=== PATIENT | male | born 1985 | race Caucasian/White ===

== ENCOUNTER 2018-09-02 03:15 | Emergency (ER) | payer BC ==
[~2018-09-02] VITALS: Ht 170.2 cm; Wt 88.5 kg
[~2018-09-02 03:15] MED LIST: ACETAMINOPHEN-1 EAC1 PO; ANALGESI TOP; BACTRIM DS TAB1 EACH PO; CARAFATE 11 GM/10 M1 PO; CENTANY30 GM TP; CIPROFLOXACIN500 M1 PO; CLEOCIN HCL300 MG PO; DARVOCET-N 1001 EACH PO; DEXEDRINE10 MG PO; FLEXERIL PO; HYDROCODON-ACE1 EAC7 PO; IBUPROFEN 800800 M1 PO; MEDROL DOSPAK21 TA1; NOHOMEMEDICATIONS; NORCO 5-325 TA1 EACH PO; ONDANSETRON ODT4 MG PO; PERCOCET 5-3251 EACH PO; PROTONIX40 MG PO; VENTOLIN17 GM INH; ZOFRAN ODT4 MG PO; ZPAK PO
[2018-09-02] MEDS ORDERED: CLEOCIN HCL150 MG PO (03:40)
[2018-09-02] MEDS ORDERED: NORCO 7.5-3251 EACH PO (03:40)
[2018-09-02] MEDS ORDERED: ZOFRAN ODT4 MG PO (03:40)
[2018-09-02 04:41] VITALS: BP 130/72
== END 2018-09-02 04:42 | disposition home or self-care (01) ==
LOC: M.ERS 03:15
DX: L03.116 Cellulitis of left lower limb (principal); F17.210 Nicotine dependence, cigarettes, uncomplicated; Z88.0 Allergy status to penicillin; Z88.1 Allergy status to other antibiotic agents; Z88.7 Allergy status to serum and vaccine

== ENCOUNTER 2019-01-26 23:42 | Emergency (ER) | payer BC ==
[~2019-01-26] VITALS: Ht 170.2 cm; Wt 93.9 kg
[~2019-01-26 23:42] MED LIST changes: +CLEOCIN HCL150 MG PO; +NORCO 7.5-3251 EACH PO
[2019-01-26] MEDS ORDERED: CHANTIX1 EACH PO (23:52)
[2019-01-27 00:02] LABS: ABSOLUTE BASOPHILS 0.1 thou/uL (0.0-0.2); ABSOLUTE EOSINOPHILS 0.4 thou/uL (0.0-0.7); ABSOLUTE LYMPHOCYTES 2.9 thou/uL (0.8-5.3); ABSOLUTE MONOCYTES 1.1 thou/uL (0.0-1.2); ABSOLUTE NEUTROPHILS 4.9 thou/uL (1.6-8.1); BASOPHILS 0.7 %; EOSINOPHILS 4.3 %; HEMATOCRIT 44.1 % (42.0-52.0); HEMOGLOBIN 15.2 gm/dL (14.0-18.0); MCH 31.7 pg (26.0-34.0); MCHC 34.4 g/dL (28.0-37.0); MCV 92.1 fL (80.0-100.0); MONOCYTES 11.4 %; MPV 9.4 fl. (7.2-11.1); NUCLEATED RBCS 0 /100WBC; PLATELET COUNT* 259 thou/uL (150-400); POLYS 52.6 %; RBC 4.79 mil/uL (4.50-6.00); RDW-CV 13.3 % (10.5-14.5); WBC 9.3 thou/uL (4.0-11.0)
[2019-01-27 00:19] LABS: ANION GAP 12 mmol/L (7-16); APTT 26.6 Seconds (25.0-31.3); BUN 16 mg/dL (7-18); CALCIUM 8.8 mg/dL (8.5-10.1); CHLORIDE 107 mmol/L (98-107); CO2 25 mmol/L (21-32); CREATININE 0.9 mg/dL (0.6-1.3); GLUCOSE 104 mg/dL (70-99); POTASSIUM 4.1 mmol/L (3.5-5.1); PROTIME 9.8 Seconds (9.20-11.50); SODIUM 144 mmol/L (136-145); TROPONIN-I LEVEL <0.06 ng/mL (<0.06)
[2019-01-27 00:24] LABS: ALBUMIN 3.6 g/dL (3.4-5.0); ALKALINE PHOSPHATASE 69 U/L (46-116); CK-MB MASS 1.8 ng/mL (<0.5-3.6); LIPASE 79 U/L (73-393); MAGNESIUM 1.9 mg/dL (1.8-2.4); NT-PRO BRAIN NAT PEPTIDE 8 pg/mL (<300); SGOT 22 U/L (15-37); SGPT 50 U/L (30-65); TOTAL BILIRUBIN 0.3 mg/dL (<0.1-1.0)
[2019-01-27 00:44] VITALS: BP 121/69
--- NOTE | 2019-01-27 17:49 | EKG ---
[place] [address] ELECTROCARDIOGRAM REPORT Name: DINAH HUMPHRIES Room: [facility].#: [id number] Admission: 01/26/19 Attend Phys: Discharge: 01/27/19 Date of : 81 Report #: [id number] THIS REPORT FOR: //name// [facility] ED Test Date: 2019-01-26 Test Time: 23:48:03 Pat Name: DINAH HUMPHRIES Department: Room: Gender: M Quality Assurance Supervisor Chassis: [facility] : 1985 Requested By: Elliott Calix Order Number: [id number] MD: Chidi Clemons Measurements Intervals Hasty Rate: 82 P: 38 AR: 141 QRS: 7 QRSD: 78 T: 84 QT: 345 QTc: 403 Interpretive Statements Sinus rhythm Probable left atrial enlargement Compared to ECG 11/18/2016 12:39:38 No significant changes Electronically Signed On 01-27-2019 17:49:09 CDT by Chidi Clemons [email or web address] <ELECTRONICALLY SIGNED> By: Chidi Clemons MD, [facility] 01/27/19 1749 [id number] Chidi Clemons MD, FACC /EPI
== END 2019-01-27 00:45 | disposition home or self-care (01) ==
LOC: M.ERS 23:42
PROVIDERS: Family Medicine
DX: R07.89 Other chest pain (principal); F17.210 Nicotine dependence, cigarettes, uncomplicated; Z88.1 Allergy status to other antibiotic agents; Z88.0 Allergy status to penicillin; Z88.6 Allergy status to analgesic agent; Z88.7 Allergy status to serum and vaccine

== ENCOUNTER 2020-01-20 17:56 | Emergency (ER) | payer BC ==
[~2020-01-20] VITALS: Ht 170.2 cm; Wt 90.7 kg
[~2020-01-20 17:56] MED LIST changes: +CHANTIX1 EACH PO
[2020-01-20] MEDS ORDERED: PHENTERMINE H37.5 M1 PO (18:05)
[2020-01-20 19:10] LABS: INFLUENZA A ANTIGEN Negative (Negative); INFLUENZA B ANTIGEN Negative (Negative)
[2020-01-20] MEDS ORDERED: PROMETHAZINE-D473 M1 PO (19:57)
[2020-01-20] MEDS ORDERED: TESSALON PERLE100 M1 PO (19:57)
[2020-01-20] MEDS ORDERED: ZYRTEC10 M2 PO (19:57)
[2020-01-20 20:10] VITALS: BP 126/74
== END 2020-01-20 20:10 | disposition home or self-care (01) ==
LOC: M.ERS 17:56
PROVIDERS: Nurse Practitioner Family
DX: J30.9 Allergic rhinitis, unspecified (principal); B34.9 Viral infection, unspecified; F17.210 Nicotine dependence, cigarettes, uncomplicated; Z88.1 Allergy status to other antibiotic agents; Z88.0 Allergy status to penicillin; Z88.6 Allergy status to analgesic agent; Z88.7 Allergy status to serum and vaccine

== ENCOUNTER 2021-02-08 14:29 | Emergency (ER) | payer BC ==
[~2021-02-08] VITALS: Ht 170.2 cm; Wt 86.2 kg
[~2021-02-08 14:29] MED LIST changes: +PHENTERMINE H37.5 M1 PO; +PROMETHAZINE-D473 M1 PO; +TESSALON PERLE100 M1 PO; +ZYRTEC10 M2 PO
[2021-02-08] MEDS ORDERED: PROMETHAZINE V120 ML PO (16:05)
[2021-02-08] MEDS ORDERED: VENTOLIN HFA 1818 GM INH (16:05)
[2021-02-08] MEDS ORDERED: ZPAK PO (16:05)
[2021-02-08] MEDS ORDERED: MEDROLDOSEPACK PO (16:05)
[2021-02-08 16:13] VITALS: BP 120/77
== END 2021-02-08 16:14 | disposition home or self-care (01) ==
LOC: M.ERS 14:29
DX: J20.9 Acute bronchitis, unspecified (principal); Z20.822 Contact with and (suspected) exposure to COVID-19; Z88.1 Allergy status to other antibiotic agents; Z88.0 Allergy status to penicillin; Z88.6 Allergy status to analgesic agent; Z88.7 Allergy status to serum and vaccine; Z88.5 Allergy status to narcotic agent; Z87.891 Personal history of nicotine dependence

== ENCOUNTER 2021-08-07 13:25 | Emergency (ER) | payer BC ==
[~2021-08-07] VITALS: Ht 170.2 cm; Wt 90.7 kg
[~2021-08-07 13:25] MED LIST changes: +MEDROLDOSEPACK PO; +PROMETHAZINE V120 ML PO; +VENTOLIN HFA 1818 GM INH
[2021-08-07 13:33] VITALS: BP 123/79
[2021-08-07] MEDS ORDERED: ADIPEX-P37.5 MG PO (13:36)
== END 2021-08-07 15:42 | disposition home or self-care (01) ==
LOC: M.ERS 13:25
DX: M25.562 Pain in left knee (principal); M79.89 Other specified soft tissue disorders; R53.1 Weakness; Z79.899 Other long term (current) drug therapy; Z88.1 Allergy status to other antibiotic agents; Z88.0 Allergy status to penicillin; Z88.5 Allergy status to narcotic agent; Z87.891 Personal history of nicotine dependence; X50.1XXA Overexertion from prolonged static or awkward postures, initial encounter; Y93.01 Activity, walking, marching and hiking; Y92.89 Other specified places as the place of occurrence of the external cause; Y99.8 Other external cause status

== ENCOUNTER 2021-08-30 19:15 | Emergency (ER) | payer BC ==
[~2021-08-30] VITALS: Ht 170.2 cm; Wt 90.7 kg
[~2021-08-30 19:15] MED LIST changes: +ADIPEX-P37.5 MG PO
[2021-08-30] MEDS ORDERED: CEPHALEXIN500 MG PO (19:49)
[2021-08-30 19:55] VITALS: BP 146/91
== END 2021-08-30 19:55 | disposition home or self-care (01) ==
LOC: M.ERS 19:15
DX: H92.02 Otalgia, left ear (principal); Z79.899 Other long term (current) drug therapy; Z88.0 Allergy status to penicillin; Z88.5 Allergy status to narcotic agent; Z87.891 Personal history of nicotine dependence